=== PATIENT | male | born 1950 | race Caucasian/White ===

== ENCOUNTER 2021-09-09 11:11 | Inpatient (IN) | payer OTHER ==
[~2021-09-09] VITALS: Ht 182.9 cm; Wt 92.6 kg
[2021-09-09 11:56] LABS: BASOPHILS ABSOLUTE AUTO 0.05 K/mm3 (0.00-0.23); BASOPHILS PERCENT AUTO 1 % (0-2); EOSINOPHILS PERCENT AUTO 3 % (0-6); Hematocrit 45.8 % (37.0-53.0); Hemoglobin 15.6 g/dL (13.5-17.5); IMMATURE GRAN ABSOLUTE AUTO 0.03 K/mm3 (0.00-0.10); IMMATURE GRAN PERCENT AUTO 0 % (0-1); LYMPHOCYTES ABSOLUTE AUTO 2.15 K/mm3 (0.84-5.20); LYMPHOCYTES PERCENT AUTO 29 % (21-46); MONOCYTES ABSOLUTE AUTO 0.63 K/mm3 (0.16-1.47); MONOCYTES PERCENT AUTO 9 % (4-13); Mean Corpuscular HGB 28.6 pg (26.0-34.0); Mean Corpuscular HGB Conc 34.1 g/dL (31.5-36.5); Mean Corpuscular Volume 84 fL (80-100); Mean Platelet Volume 9.4 fL (9.1-12.4); NEUTROPHILS ABSOLUTE AUTO 4.32 K/mm3 (1.96-9.15); NEUTROPHILS PERCENT AUTO 59 % (41-73); Platelet Count 167 K/mm3 (150-400); RDW Coefficient Variation 13.2 % (11.7-14.2); RDW Standard Deviation 40.2 fL (35.1-46.3); Red Blood Cell Count 5.46 M/mm3 (4.30-5.90); White Blood Cell Count 7.38 K/mm3 (4.00-11.30)
[2021-09-09] MEDS ORDERED: SERT100 PO (12:08)
[2021-09-09] MEDS ORDERED: ATOR20 PO (12:08)
[2021-09-09] MEDS ORDERED: DOXA4 PO (12:09)
[2021-09-09] MEDS ORDERED: STIOLTO RESPIMAT4 G1 NEB (12:12)
[2021-09-09 12:13] LABS: Alanine Aminotransfer (ALT/SGP 45 U/L (12-78); Albumin, Blood 4.2 g/dL (3.4-5.0); Albumin/Globulin Ratio 1.2 (0.8-1.8); Alk Phos 91 U/L (50-136); Anion Gap 8 mmol/L (6-16); Aspartate Aminotrans (AST/SGOT 24 U/L (12-37); Bilirubin, Total 0.5 mg/dL (0.1-1.0); Blood Urea Nitrogen 21 mg/dL (8-24); Bun/Creatinine Ratio 22.3 (12.0-20.0); CO2, Blood 22 mmol/L (21-32); Calcium, Blood 8.9 mg/dL (8.5-10.1); Chloride, Blood 105 mmol/L (98-108); Creatinine, Blood 0.94 mg/dL (0.60-1.20); Globulin, Blood 3.5 g/dL (2.2-4.0); Glomerular Filtration Rate >60 (60-); Glucose, Blood 117 mg/dL (70-99); Potassium, Blood 4.2 mmol/L (3.5-5.5); Sodium, Blood 135 mmol/L (136-145); Total Protein, Blood 7.7 g/dL (6.4-8.2)
[2021-09-09] MEDS ORDERED: Ventolin5 MG/1 ML INH (12:16)
[2021-09-09 14:04] LABS: U Amphetamine Screen Not Detected; U Barbituate Screen Not Detected; U Benzodiazapine Screen Not Detected; U Buprenorphine Screen Not Detected; U Cannabinoids Screen DETECTED; U Cocaine Screen Not Detected; U Methadone Screen Not Detected; U Methamphetamine Screen Not Detected; U Opiates Screen Not Detected; U Oxycodone Screen Not Detected; U Phencyclidine Screen Not Detected; U Propoxyphene Screen Not Detected
[2021-09-09 15:12] LABS: Anti-Xa UFH, PHA Monitoring <0.10 IU/mL; International Normalized Ratio 1.02; Prothrombin Time Results 10.7 Sec (9.7-11.5)
[2021-09-09 15:51] LABS: Influenza A, PCR NEGATIVE (NEGATIVE); Influenza B, PCR NEGATIVE (NEGATIVE); Resp Syncytial Virus, PCR NEGATIVE (NEGATIVE); SARS-Cov-2 (COVID-19) PCR, MMC NEGATIVE (NEGATIVE)
--- NOTE | 2021-09-09 18:31 | NUR ---
ASSUMED CARE PT ARRIVES FROM [facility] S/P ANGIOGRAM WITH STENTING. PT ALERT AND ORIENTED. VS STABLE. O2 SATS >90% ON RA. HR NSR. PT DENIES ANY CP/PRESSURE. RIGHT RADIAL SITE WITH TR BAND IN PLACE AND 11ML OF AIR IN BAND. NO BLEEDING, BRUISING OR HEMATOMA NOTED. ARM BOARD IN PLACE AND PT EDUCATED ON RESTRICTIONS FOR RIGHT ARM. PT ORIENTED TO ROOM AND UNIT. WILL CONTINUE TO MONITOR AND REPORT TO ONCOMING RN
[2021-09-10 03:32] LABS: BASOPHILS ABSOLUTE AUTO 0.04 K/mm3 (0.00-0.23); BASOPHILS PERCENT AUTO 1 % (0-2); EOSINOPHILS PERCENT AUTO 3 % (0-6); Hematocrit 41.3 % (37.0-53.0); Hemoglobin 13.7 g/dL (13.5-17.5); IMMATURE GRAN ABSOLUTE AUTO 0.02 K/mm3 (0.00-0.10); IMMATURE GRAN PERCENT AUTO 0 % (0-1); LYMPHOCYTES ABSOLUTE AUTO 1.95 K/mm3 (0.84-5.20); LYMPHOCYTES PERCENT AUTO 25 % (21-46); MONOCYTES ABSOLUTE AUTO 0.68 K/mm3 (0.16-1.47); MONOCYTES PERCENT AUTO 9 % (4-13); Mean Corpuscular HGB 28.4 pg (26.0-34.0); Mean Corpuscular HGB Conc 33.2 g/dL (31.5-36.5); Mean Corpuscular Volume 86 fL (80-100); Mean Platelet Volume 9.6 fL (9.1-12.4); NEUTROPHILS ABSOLUTE AUTO 4.92 K/mm3 (1.96-9.15); NEUTROPHILS PERCENT AUTO 63 % (41-73); Platelet Count 147 K/mm3 (150-400); RDW Coefficient Variation 13.5 % (11.7-14.2); RDW Standard Deviation 42.2 fL (35.1-46.3); Red Blood Cell Count 4.83 M/mm3 (4.30-5.90); White Blood Cell Count 7.81 K/mm3 (4.00-11.30)
[2021-09-10 03:51] LABS: Alanine Aminotransfer (ALT/SGP 43 U/L (12-78); Albumin, Blood 3.5 g/dL (3.4-5.0); Albumin/Globulin Ratio 1.1 (0.8-1.8); Alk Phos 67 U/L (50-136); Anion Gap 5 mmol/L (6-16); Aspartate Aminotrans (AST/SGOT 74 U/L (12-37); Bilirubin, Total 0.5 mg/dL (0.1-1.0); Blood Urea Nitrogen 20 mg/dL (8-24); Bun/Creatinine Ratio 21.7 (12.0-20.0); CO2, Blood 25 mmol/L (21-32); Calcium, Blood 8.5 mg/dL (8.5-10.1); Chloride, Blood 108 mmol/L (98-108); Creatinine, Blood 0.92 mg/dL (0.60-1.20); Globulin, Blood 3.1 g/dL (2.2-4.0); Glomerular Filtration Rate >60 (60-); Glucose, Blood 113 mg/dL (70-99); Potassium, Blood 4.2 mmol/L (3.5-5.5); Sodium, Blood 138 mmol/L (136-145); Total Protein, Blood 6.6 g/dL (6.4-8.2)
--- NOTE | 2021-09-10 05:41 | NUR ---
SHIFT SUMMARY PT ALERT AND ORIENTED X4. BP STABLE. HR NSR 60'S AND 70'S. ON RA SATS OVER 94%. NS RUNNING AT 75ML/HR. PT VOIDS INDEPENDENTLY TO BATHROOM. TR BAND REMOVED BY 2300. R RADIAL SITE C/D/I. C/O 10/29 RIGHT FOREARM RADIATING PAIN. RELIEVED WITH TYLENOL. IN BED SLEEPING WITH CALL ALARM AT SIDE. WILL CONINUE TO MONITOR UNTIL REPORT GIVEN TO DAYSTERRENCEFT TAVARES
--- NOTE | 2021-09-10 16:52 | NUR ---
SHIFT SUMMARY PT ALERT AND ORIENTED. VS STABLE. O2 SATS REMAIN ABOVE 90% ON RA. HR NSR. PT DENIES ANY PAIN. PT COMPLAINS OF MILD LIGHTHEADEDNESS WHEN HE WALKS TO THE BATHROOM, BUT OTHERWISE NO COMPLAINTS. WILL CONTINUE TO MONITOR AND REPORT TO ONCOMING RN
--- NOTE | 2021-09-10 21:14 | NUR ---
Assumed care of pt at 1900. A/Ox4. Observed laying in bed with no signs of acute distress. Denies any CP/pressure or pain in general. Had a headache earlier in the night that was relieved with the PRN tylenol. Resp WNL on RA. Tele shows NSR in 80's, strong pulses t/o including R radial wrist, with no edema noted to any extremity. BP stable. R radial site C/D/I. [facility] about [facility] his new [facility] and F/U with cardiology. Patient during dayshi stated he felt lightheaded x1 when getting up. Educated patient on the need to sit on the side of the bed for a few minutes prior to getting up, and if he still feels lightheaded to call us. Patient says he hasn't had an episode of that since . Will update as changes occur.
[2021-09-11] MEDS ORDERED: CLOP75 PO (10:57)
[2021-09-11] MEDS ORDERED: ASPI81CH PO (10:57)
[2021-09-11] MEDS ORDERED: LISI5 PO (10:57)
[2021-09-11] MEDS ORDERED: METO25ER PO (10:57)
--- NOTE | 2021-09-11 12:15 | NUR ---
UPDATE DISCHARGE ORDERS PROVIDED AND INSTRUCTIONS GIVEN TO PT. PT EDUCATED ON MEDICATIONS CHANGES AND FOLLOW-UP. ALL QUESTIONS ANSWERED. PT TAKEN OUT BY RUSLAN
== END 2021-09-11 12:08 | disposition home or self-care (01) | DRG 247 ==
LOC: ER 11:11 → PCU 15:15 → MEDS 15:15 → PCU 17:53
PROVIDERS: Emergency Medicine; Nurse Practitioner Acute Care; ADMIT Internal Medicine
PROC: 027136Z Dilation of Coronary Artery, Two Arteries with Three Drug-eluting Intraluminal Devices, Percutaneous Approach (ICD-10-PCS; principal; 2021-09-09)
PROC: 4A023N7 Measurement of Cardiac Sampling and Pressure, Left Heart, Percutaneous Approach (ICD-10-PCS; 2021-09-09)
PROC: B2111ZZ Fluoroscopy of Multiple Coronary Arteries using Low Osmolar Contrast (ICD-10-PCS; 2021-09-09)
DX: I21.4 Non-ST elevation (NSTEMI) myocardial infarction (principal); Z20.822 Contact with and (suspected) exposure to COVID-19; I25.10 Atherosclerotic heart disease of native coronary artery without angina pectoris; J44.9 Chronic obstructive pulmonary disease, unspecified; E78.5 Hyperlipidemia, unspecified; F32.A Depression, unspecified; N40.0 Benign prostatic hyperplasia without lower urinary tract symptoms; Z96.653 Presence of artificial knee joint, bilateral; Z98.890 Other specified postprocedural states; Z79.899 Other long term (current) drug therapy
CPT/HCPCS: 0241U; 36415; 71045; 76937; 80053; 83690; 84484; 85025; 85347; 85520; 85610; 92928; 93005; 93010; 93306; 93458; 94640; 94760; 96374; 96375; 99152; 99153; 99285-25; A9270; C1725; C1769; C1874; C1887; C1894; C9600; J1170; J1644; J2250; J2405; J3010; J7030; J7040; J7050; Q9967

== ENCOUNTER 2021-09-22 09:51 | Observation (INO) | payer OTHER ==
[~2021-09-22] VITALS: Ht 182.9 cm; Wt 90.7 kg
[~2021-09-22 09:51] MED LIST: ASPI81CH PO; ATOR20 PO; CLOP75 PO; DOXA4 PO; LISI5 PO; METO25ER PO; SERT100 PO; STIOLTO RESPIMAT4 G1 NEB; Ventolin5 MG/1 ML INH
[2021-09-22 10:32] LABS: Anion Gap 7 mmol/L (6-16); Blood Urea Nitrogen 20 mg/dL (8-24); Bun/Creatinine Ratio 21.8 (12.0-20.0); CO2, Blood 23 mmol/L (21-32); Calcium, Blood 8.9 mg/dL (8.5-10.1); Chloride, Blood 109 mmol/L (98-108); Creatinine, Blood 0.92 mg/dL (0.60-1.20); Glomerular Filtration Rate >60 (60-); Glucose, Blood 114 mg/dL (70-99); Potassium, Blood 4.3 mmol/L (3.5-5.5); Sodium, Blood 139 mmol/L (136-145)
[2021-09-22 10:34] LABS: BASOPHILS ABSOLUTE AUTO 0.05 K/mm3 (0.00-0.23); BASOPHILS PERCENT AUTO 1 % (0-2); EOSINOPHILS ABSOLUTE AUTO 0.23 K/mm3 (0.00-0.68); EOSINOPHILS PERCENT AUTO 4 % (0-6); Hematocrit 39.4 % (37.0-53.0); Hemoglobin 13.2 g/dL (13.5-17.5); IMMATURE GRAN ABSOLUTE AUTO 0.02 K/mm3 (0.00-0.10); IMMATURE GRAN PERCENT AUTO 0 % (0-1); LYMPHOCYTES ABSOLUTE AUTO 1.91 K/mm3 (0.84-5.20); LYMPHOCYTES PERCENT AUTO 31 % (21-46); MONOCYTES ABSOLUTE AUTO 0.55 K/mm3 (0.16-1.47); MONOCYTES PERCENT AUTO 9 % (4-13); Mean Corpuscular HGB 28.5 pg (26.0-34.0); Mean Corpuscular HGB Conc 33.5 g/dL (31.5-36.5); Mean Corpuscular Volume 85 fL (80-100); Mean Platelet Volume 9.4 fL (9.1-12.4); NEUTROPHILS ABSOLUTE AUTO 3.47 K/mm3 (1.96-9.15); NEUTROPHILS PERCENT AUTO 56 % (41-73); Platelet Count 184 K/mm3 (150-400); RDW Coefficient Variation 13.2 % (11.7-14.2); RDW Standard Deviation 41.1 fL (35.1-46.3); Red Blood Cell Count 4.63 M/mm3 (4.30-5.90); White Blood Cell Count 6.23 K/mm3 (4.00-11.30)
--- NOTE | 2021-09-22 14:18 | NUR ---
1300 PATIENT WAS BROUGHT TO THE [facility] S/P CORONARY ANGIOGRAM. RIGHT RADIAL ACCESS USED BY DR. GRANT. TR BAND IN PLACE WITH 10 ML OF AIR AND WHITE BOARD. PATIENT WAS PLACE DON THE MONITOR AND CALL LIGHT IN REACH. EDWIGE IS IN A RECLINER AND NURSING STAFF AT THE BEDSIDE. PATIENT IS AAO X 3 ANS NO PAIN NOTED. VVS.
--- NOTE | 2021-09-22 14:20 | NUR ---
1420 PATIENT VVS. WILL BEGIN TAKING AIR FROM THE TR BAND PER PROTOCOL AT 1430. NO PAIN NOTED.
--- NOTE | 2021-09-22 15:14 | NUR ---
TR BAND IS FLAT, NO BLEEDING NOTED. NO HEMATOMA NOTED.
--- NOTE | 2021-09-22 15:24 | NUR ---
PATIENT UP OFF THE MONITOR. PIV REMOVED FROM THE LEFT AC. PRESSURE DRESSING APPLIED. PATIENT DRESSING SELF, ALL BELONGINGS AT THE BEDSIDE FROM THE ED. PATEINT HAS ARRANGED FOR SON TO DRIVE HIM HOME TODAY. HE WILL NOT DRIVE.
--- NOTE | 2021-09-22 16:00 | NUR ---
TR BAND REMOVED. CLOTH DOT PLACED. REVIEWED DISCHARGED INSTRUCTIONS. FOLLOW UP APPOINTMENT AND ALL QUESTIONS ANSWERED. DISCHARGED HOME WITH INSTRUCTIONS AND BELONINGS.
== END 2021-09-22 16:00 | disposition home or self-care (01) ==
LOC: ER 09:51 → ERHOLD 09:52
PROVIDERS: Emergency Medicine; ADMIT Internal Medicine
DX: R07.89 Other chest pain (principal); J44.9 Chronic obstructive pulmonary disease, unspecified; E78.5 Hyperlipidemia, unspecified; I25.10 Atherosclerotic heart disease of native coronary artery without angina pectoris; F32.A Depression, unspecified; Z95.5 Presence of coronary angioplasty implant and graft
CPT/HCPCS: 36415; 71045; 76937; 80048; 84484; 85025; 93005; 93010; 93454; 99152; 99153; A9270; C1769; C1887; C1894; J1644; J2250; J3010; J7030; J7050; Q9967

== ENCOUNTER 2022-03-15 07:00 | Day surgery (SDC) | payer OTHER ==
[~2022-03-15] VITALS: Ht 182.9 cm; Wt 88.6 kg
[~2022-03-15 07:00] MED LIST changes: +NITR.4SL SL
--- NOTE | 2022-03-15 07:46 | NUR ---
03/15/22 0746 Mary Johnson CALL LIGHT WITHIN REACH. TETRACAINE IN THE RIGHT EYE AT 0741 AND PLEDGETT AT 0742
== END 2022-03-15 09:29 | disposition home or self-care (01) ==
LOC: ORSCSDS 07:00
PROVIDERS: Ophthalmology
PROC: 08RJ3JZ Replacement of Right Lens with Synthetic Substitute, Percutaneous Approach (ICD-10-PCS; principal; 2022-03-15 08:30)
DX: H25.11 Age-related nuclear cataract, right eye (principal); J44.9 Chronic obstructive pulmonary disease, unspecified; I25.2 Old myocardial infarction; F32.A Depression, unspecified; F41.9 Anxiety disorder, unspecified; I25.10 Atherosclerotic heart disease of native coronary artery without angina pectoris; J61 Pneumoconiosis due to asbestos and other mineral fibers; Z79.82 Long term (current) use of aspirin; Z79.899 Other long term (current) drug therapy
CPT/HCPCS: J2001; J2250; J3010; J3301; J7040; V2632

== ENCOUNTER 2022-03-29 07:10 | Day surgery (SDC) | payer OTHER ==
[~2022-03-29] VITALS: Ht 182.9 cm; Wt 87.3 kg
--- NOTE | 2022-03-29 07:36 | NUR ---
03/29/22 0736 NEERU ASKEW T: 0735 P:0736 PT READY FOR OR, CALL LIGHT IN REACH
== END 2022-03-29 09:00 | disposition home or self-care (01) ==
LOC: ORSCSDS 07:10
PROVIDERS: Ophthalmology
PROC: 08RK3JZ Replacement of Left Lens with Synthetic Substitute, Percutaneous Approach (ICD-10-PCS; principal; 2022-03-29 08:30)
DX: H25.12 Age-related nuclear cataract, left eye (principal); I21.9 Acute myocardial infarction, unspecified; I25.10 Atherosclerotic heart disease of native coronary artery without angina pectoris; J61 Pneumoconiosis due to asbestos and other mineral fibers; F32.A Depression, unspecified; F41.9 Anxiety disorder, unspecified; Z79.82 Long term (current) use of aspirin; Z79.899 Other long term (current) drug therapy
CPT/HCPCS: J2001; J2250; J3010; J3301; V2632

== ENCOUNTER 2023-06-28 08:28 | Day surgery (SDC) | payer OTHER ==
[~2023-06-28] VITALS: Ht 180.3 cm; Wt 89.0 kg
[2023-06-28] VITALS (10 sets, daily range): BP systolic 121–173; BP diastolic 66–134
[~2023-06-28 08:28] MED LIST changes: +ASCO500 PO; +ATOR10 PO; +Acetaminophen650 M1 PO; +MULVITA PO; +Norco 5-325 Ta1 EACH PO; +STIOLTO RESPIMAT4 G1 INH; -STIOLTO RESPIMAT4 G1 NEB; +VITAMIN D310 MC4 PO
[2023-06-28] MEDS ORDERED: FISH OIL 1,2001 EAC7 PO (08:51)
--- NOTE | 2023-06-28 09:43 | NUR ---
PATIENT INSTRUCTED TO KEEP HIS DENTURES IN PER ANESTHESIOLOGIST.
--- NOTE | 2023-06-28 13:48 | NUR ---
PATIENT LAYING IN GURNEY WITH HOB ELEVATED APPROX 45 DEGREES. BREATING RA. DENIES PAIN AND NAUSEA. OFFERED PO FLUIDS. INCISION SITE X3 TO ABDOMEN, CLEAN AND DRY WITH NO VISIBLE DRAINAGE. SURGICAL GLUE CLOSURE INTACT X3.
--- NOTE | 2023-06-28 13:55 | NUR ---
EATING CRACKERS AND DRINKING CLEAR SODA.
--- NOTE | 2023-06-28 13:56 | NUR ---
PATIENT STATES HE HAS DECREASED SENSATION FROM CARMELO DOWN TO TOES AND IS EXPERIENCING TINGLING SENSATION. ABLE TO FEEL NURSE TOUCH HIS LEG FROM HIP TO TOES, BUT LESS SENSATION THAN NORMAL. ABLE TO MOVE TOES AND BEND KNEES.
--- NOTE | 2023-06-28 14:17 | NUR ---
NORI ARRANGED HOME WITH FRIEND, INDERJIT.
--- NOTE | 2023-06-28 14:27 | NUR ---
PATIENT CARE TURNED OVER TO RIOS PENA RN. REPORT GIVEN.
--- NOTE | 2023-06-28 14:52 | NUR ---
Patient up to Ambulate independently. Gait steady. Discharge instructions reviewed with patient. Patient verbalizes understanding. Copy given to patient to take home. Patient States Post-Procedure ride home has been arranged. Discharged via wheelchair to private car for ride home.
== END 2023-06-28 14:52 | disposition home or self-care (01) ==
LOC: ORSCMMR 08:28 → ORD 10:00 → ORSCMMR 14:52
PROVIDERS: Surgery
PROC: 8E0W4CZ Robotic Assisted Procedure of Trunk Region, Percutaneous Endoscopic Approach (ICD-10-PCS; principal; 2023-06-28 10:00)
PROC: 0YUA4JZ Supplement Bilateral Inguinal Region with Synthetic Substitute, Percutaneous Endoscopic Approach (ICD-10-PCS; principal; 2023-06-28 10:00)
DX: K40.20 Bilateral inguinal hernia, without obstruction or gangrene, not specified as recurrent (principal); D17.6 Benign lipomatous neoplasm of spermatic cord; I10 Essential (primary) hypertension; I25.10 Atherosclerotic heart disease of native coronary artery without angina pectoris; J44.9 Chronic obstructive pulmonary disease, unspecified; Z79.899 Other long term (current) drug therapy; E78.5 Hyperlipidemia, unspecified; B19.20 Unspecified viral hepatitis C without hepatic coma
CPT/HCPCS: A9270; C1781; J0690; J1100; J1170; J1885; J2405; J2704; J2795; J3010; J7120

== ENCOUNTER 2024-05-05 07:53 | Emergency (ER) | payer OTHER ==
[~2024-05-05] VITALS: Ht 182.9 cm; Wt 81.7 kg
[~2024-05-05 07:53] MED LIST changes: +FISH OIL 1,2001 EAC7 PO
[2024-05-05 08:13] LABS: Calcium, Ionized (POC) 1.12 mmol/L (1.10-1.46); Chloride (POC) 105 mmol/L (98-108); Creatinine (POC) 0.8 mg/dL (0.8-1.3); Glucose (ISTAT POC) 174 mg/dL (70-99); Hemoglobin (POC) 15.3 g/dL (13.5-17.5); Potassium (POC) 3.6 mmol/L (3.5-5.5); Sodium (POC) 140 mmol/L (135-148); Total CO2 (POC) 21 mmol/L (21-32)
[2024-05-05 08:27] LABS: BASOPHILS ABSOLUTE AUTO 0.05 K/mm3 (0.00-0.23); BASOPHILS PERCENT AUTO 1 % (0-2); EOSINOPHILS ABSOLUTE AUTO 0.22 K/mm3 (0.00-0.68); EOSINOPHILS PERCENT AUTO 4 % (0-6); Hematocrit 42.8 % (37.0-53.0); Hemoglobin 15.1 g/dL (13.5-17.5); IMMATURE GRAN ABSOLUTE AUTO 0.01 K/mm3 (0.00-0.10); IMMATURE GRAN PERCENT AUTO 0 % (0-1); LYMPHOCYTES ABSOLUTE AUTO 1.54 K/mm3 (0.84-5.20); LYMPHOCYTES PERCENT AUTO 29 % (21-46); MONOCYTES ABSOLUTE AUTO 0.36 K/mm3 (0.16-1.47); MONOCYTES PERCENT AUTO 7 % (4-13); Mean Corpuscular HGB Conc 35.3 g/dL (31.5-36.5); Mean Corpuscular Volume 85 fL (80-100); Mean Platelet Volume 9.1 fL (9.1-12.4); NEUTROPHILS ABSOLUTE AUTO 3.13 K/mm3 (1.96-9.15); NEUTROPHILS PERCENT AUTO 59 % (41-73); Platelet Count 152 K/mm3 (150-400); RDW Coefficient Variation 13.7 % (11.7-14.2); RDW Standard Deviation 42.4 fL (35.1-46.3); Red Blood Cell Count 5.03 M/mm3 (4.30-5.90); White Blood Cell Count 5.31 K/mm3 (4.00-11.30)
[2024-05-05 08:42] LABS: Ethanol (Alcohol), Blood, Med <3 mg/dL
[2024-05-05 08:46] LABS: Alanine Aminotransfer (ALT/SGP 43 U/L (12-78); Albumin, Blood 3.9 g/dL (3.4-5.0); Albumin/Globulin Ratio 1.2 (0.8-1.8); Alk Phos 98 U/L (50-136); Anion Gap 14 mmol/L (3-11); Aspartate Aminotrans (AST/SGOT 33 U/L (12-37); Bilirubin, Total 0.5 mg/dL (0.1-1.0); Blood Urea Nitrogen 10 mg/dL (8-24); Bun/Creatinine Ratio 13.1 (12.0-20.0); CO2, Blood 22 mmol/L (21-32); Calcium, Blood 8.9 mg/dL (8.5-10.1); Chloride, Blood 108 mmol/L (98-108); Creatinine, Blood 0.77 mg/dL (0.60-1.20); Globulin, Blood 3.3 g/dL (2.2-4.0); Glomerular Filtration Rate 95 (60-); Glucose, Blood 180 mg/dL (70-99); Potassium, Blood 3.6 mmol/L (3.5-5.5); Sodium, Blood 140 mmol/L (136-145); Total Protein, Blood 7.2 g/dL (6.4-8.2)
[2024-05-05] MEDS ORDERED: Ketorolac Tromethamine 15mg Vial IV ONE (09:30)
[2024-05-05 10:42] VITALS: BP 147/109
== END 2024-05-05 11:22 | disposition home or self-care (01) ==
LOC: ER 07:53
PROVIDERS: Physician Assistant
DX: R53.1 Weakness (principal); J44.9 Chronic obstructive pulmonary disease, unspecified; E78.5 Hyperlipidemia, unspecified; Z79.82 Long term (current) use of aspirin; Z79.02 Long term (current) use of antithrombotics/antiplatelets; Z79.899 Other long term (current) drug therapy
CPT/HCPCS: 70450; 80047; 80053; 80320; 85014; 85025; 93005; 93010; 96374; 99285-25; J1885

== ENCOUNTER 2025-02-25 14:14 | Emergency (ER) | payer OTHER ==
[~2025-02-25] VITALS: Ht 180.3 cm; Wt 88.5 kg
[2025-02-25] MEDS ORDERED: HYDROmorphone HCl/Pf 1MG SYR IV ONE (14:50)
[2025-02-25] MEDS ORDERED: Ketorolac Tromethamine 15mg Vial IV ONE (17:25)
[2025-02-25] MEDS ORDERED: RX Prepack 6 Tabs Oxycodone 5mg UD ONE (18:25)
[2025-02-25 18:30] VITALS: BP 152/97
[2025-02-25] MEDS ORDERED: Acetaminophen 160MG / 5ML 10.15 UDC PO ONE ×2 (18:30)
[2025-02-25] MEDS ORDERED: OXAYDO5 M1 PO (18:37)
== END 2025-02-25 19:15 | disposition home or self-care (01) ==
LOC: ER 14:14
DX: S92.342A Displaced fracture of fourth metatarsal bone, left foot, initial encounter for closed fracture (principal); S92.352A Displaced fracture of fifth metatarsal bone, left foot, initial encounter for closed fracture; S93.402A Sprain of unspecified ligament of left ankle, initial encounter; S43.402A Unspecified sprain of left shoulder joint, initial encounter; M54.2 Cervicalgia; J44.9 Chronic obstructive pulmonary disease, unspecified; E78.5 Hyperlipidemia, unspecified; Z79.2 Long term (current) use of antibiotics; Z79.82 Long term (current) use of aspirin; Z79.899 Other long term (current) drug therapy; W11.XXXA Fall on and from ladder, initial encounter
CPT/HCPCS: 70450; 72125; 73030; 73610; 73630; A9270; J1171; J1885

== ENCOUNTER 2025-05-20 06:25 | Day surgery (SDC) | payer OTHER ==
[~2025-05-20] VITALS: Ht 635 cm; Wt 80.7 kg
[~2025-05-20 06:25] MED LIST changes: +CeFAZolin Sodium 2,000 MG VIAL ONE; +OXAYDO5 M1 PO; +Tranexamic Acid 100 ML IV ONE
[2025-05-20] MEDS ORDERED: Dexamethasone Sod Phos 10 MG/ML 1ML VIAL ONE (06:57)
[2025-05-20] MEDS ORDERED: Midazolam HCl 1MG / ML 2ML Vial ONE (06:57)
[2025-05-20] MEDS ORDERED: Dexmedetomidine HCL 200 MCG / 2 ML ONE (06:58)
--- NOTE | 2025-05-20 07:21 | NUR ---
05/20/25 0721 HUMERA COLLAZO TIME OUT: 712 BLOCK START: 715 BLOCK STOP: 718 O2 SAT 98% ON 3L DURING BLOCK
[2025-05-20] MEDS ORDERED: Rocuronium Bromide 10 MG/ML 5ML Injection IV ONE (07:28)
--- NOTE | 2025-05-20 08:05 | NUR ---
05/20/25 0805 Delfina Chapman FIRST DOSE OF TXA GIVEN IN OR BY ANESTHESIA AT 0738
[2025-05-20] MEDS ORDERED: Phenylephrine HCl 100 MCG/ML-NS 10MLSYR (1MG/10ML) ONE (08:06)
[2025-05-20] MEDS ORDERED: Bupivacaine 0.5% HCl 5 MG/ML 30MLVIAL ONE (08:14)
[2025-05-20] MEDS ORDERED: FentaNYL Citrate 50 MCG/ML 2 ML Injection ONE (08:39)
[2025-05-20] MEDS ORDERED: Ondansetron HCl 2 MG / ML 2ML Vial ONE ×2 (08:50→10:56)
[2025-05-20] MEDS ORDERED: Sugammadex Sodium 200 MG/2ML SDV (100 MG/ML) ONE (08:51)
--- NOTE | 2025-05-20 09:38 | NUR ---
05/20/25 0938 Elza Hunt TRIAL DOWN TO 3LPM VIA NC STARTING. PT BEGINNING TO STIR. HE ENDORSES MILD PAIN AT THIS TIME. DENIES DIZZINESS/NAUSEA.
--- NOTE | 2025-05-20 09:55 | NUR ---
05/20/25 0955 Elza Hunt XR COMPLETED. SPO2 97% ON 3LPM. VSS. PT DENIES PAIN/NAUSEA/DIZZINESS.
[2025-05-20] MEDS ORDERED: Tranexamic Acid 100 ML IV ONE (10:13)
[2025-05-20 11:06] VITALS: BP 128/66
== END 2025-05-20 11:28 | disposition home or self-care (01) ==
LOC: ORSCSDS 06:25
PROVIDERS: Orthopaedic Surgery
PROC: 0RRK00Z Replacement of Left Shoulder Joint with Reverse Ball and Socket Synthetic Substitute, Open Approach (ICD-10-PCS; principal; 2025-05-20 07:30)
DX: M19.012 Primary osteoarthritis, left shoulder (principal); I10 Essential (primary) hypertension; I25.10 Atherosclerotic heart disease of native coronary artery without angina pectoris; B19.20 Unspecified viral hepatitis C without hepatic coma; Z79.02 Long term (current) use of antithrombotics/antiplatelets; Z79.82 Long term (current) use of aspirin; Z79.899 Other long term (current) drug therapy; E78.5 Hyperlipidemia, unspecified; I25.2 Old myocardial infarction; J44.9 Chronic obstructive pulmonary disease, unspecified; N40.0 Benign prostatic hyperplasia without lower urinary tract symptoms; Z87.891 Personal history of nicotine dependence; Z96.611 Presence of right artificial shoulder joint; Z96.653 Presence of artificial knee joint, bilateral
CPT/HCPCS: 73030; A9270; C1713; C1776; J0690; J1100; J2250; J2371; J2405; J2704; J3010; J7120

== ENCOUNTER 2025-05-26 09:24 | Inpatient (IN) | payer OTHER ==
[2025-05-26] VITALS (7 sets, daily range): BP systolic 122–165; BP diastolic 64–73
[~2025-05-26] VITALS: Ht 182.9 cm; Wt 84.0 kg
[~2025-05-26 09:24] MED LIST changes: +ALBU90OI INH; -ASPI81CH PO; +Aspir 8181 MG PO; -CeFAZolin Sodium 2,000 MG VIAL ONE; -Tranexamic Acid 100 ML IV ONE; -Ventolin5 MG/1 ML INH
[2025-05-26] MEDS ORDERED: Ondansetron HCl 2 MG / ML 2ML Vial IV ONE (09:40)
[2025-05-26] MEDS ORDERED: Morphine Sulfate 4 MG/1 ML Injection IV ONE (10:00)
[2025-05-26 10:42] LABS: BASOPHILS ABSOLUTE AUTO 0.01 K/mm3 (0.00-0.23); BASOPHILS PERCENT AUTO 0 % (0-2); EOSINOPHILS ABSOLUTE AUTO 0.01 K/mm3 (0.00-0.68); EOSINOPHILS PERCENT AUTO 0 % (0-6); IMMATURE GRAN ABSOLUTE AUTO 0.06 K/mm3 (0.00-0.10); IMMATURE GRAN PERCENT AUTO 1 % (0-1); LYMPHOCYTES ABSOLUTE AUTO 1.27 K/mm3 (0.84-5.20); LYMPHOCYTES PERCENT AUTO 11 % (21-46); MONOCYTES ABSOLUTE AUTO 0.80 K/mm3 (0.16-1.47); MONOCYTES PERCENT AUTO 7 % (4-13); Mean Corpuscular HGB Conc 28.7 g/dL (31.5-36.5); Mean Corpuscular Volume 96 fL (80-100); NEUTROPHILS ABSOLUTE AUTO 9.39 K/mm3 (1.96-9.15); NEUTROPHILS PERCENT AUTO 81 % (41-73); NRBC ABSOLUTE 0.02 K/mm3 (0.00-0.02); NRBC Auto 0.2 /100 WBC (0.0-0.2); Platelet Count 298 K/mm3 (150-400); RDW Coefficient Variation 16.6 % (11.7-14.2); RDW Standard Deviation 56.3 fL (35.1-46.3)
[2025-05-26 10:47] LABS: Hemoglobin 4.7 g/dL (13.5-17.5)
[2025-05-26 10:57] LABS: Hematocrit 16.4 % (37.0-53.0)
[2025-05-26 11:12] LABS: Alanine Aminotransfer (ALT/SGP 36.0 U/L (12-78); Albumin, Blood 2.7 g/dL (3.4-5.0); Albumin/Globulin Ratio 0.9 (0.8-1.8); Anion Gap 9.0 mmol/L (3-11); Aspartate Aminotrans (AST/SGOT 22.0 U/L (12-37); Bilirubin, Total 0.5 mg/dL (0.1-1.0); Blood Urea Nitrogen 27.0 mg/dL (8-24); CO2, Blood 24.0 mmol/L (21-32); Calcium, Blood 8.2 mg/dL (8.5-10.1); Chloride, Blood 107.0 mmol/L (98-108); Creatinine, Blood 0.7 mg/dL (0.60-1.20); Ferritin, Serum 233.0 ng/mL (26-388); Globulin, Blood 3.0 g/dL (2.2-4.0); Glucose, Blood 173.0 mg/dL (70-99); Potassium, Blood 4.0 mmol/L (3.5-5.5); Sodium, Blood 136.0 mmol/L (136-145); Total Iron Binding Capacity 269.0 ug/dL (250-450); Total Protein, Blood 5.7 g/dL (6.4-8.2)
[2025-05-26] MEDS ORDERED: FLU VACC TS2025(65UP)/MF59C/PF 45 MCG/0.5 ML SYRINGE IM SCH (12:40)
[2025-05-26 12:50] LABS: IMMATURE RETIC FRACTION 41.8 % (2.3-16.0); RETIC HGB EQUIVALENT 22.5 pg (28.20-36.60); RETICULOCYTE COUNT PERCENT 13.11 % (0.50-2.50)
[2025-05-26] MEDS ORDERED: NS 1,000 ML IV SCH (13:00)
[2025-05-26] MEDS ORDERED: NS 500 ML IV SCH (13:35)
[2025-05-26] MEDS ORDERED: ASMANEX220 M14 INH (13:40)
[2025-05-26] MEDS ORDERED: ATOR80 PO (13:41)
[2025-05-26] MEDS ORDERED: DULO60 PO (13:41)
[2025-05-26] MEDS ORDERED: Ondansetron 4 MG SoluTab MM PRN (14:45)
[2025-05-26] MEDS ORDERED: Albuterol HFA200 ACT/6.7 GM INH INH PRN (15:30)
[2025-05-26] MEDS ORDERED: Mometasone Furoate Inhaler 220 mcg 14 ACT INH SCH (15:30)
[2025-05-26] MEDS ORDERED: Ipratropium/Albuterol SulF 2.5-0.5MG/3 ML Amp INH SCH (15:30)
--- NOTE | 2025-05-26 15:36 | NUR ---
PT ADMITTED TO ROOM 359 AT 1414 WITH FIRST UNIT OF PRBS'S INFUSING IN LH#20, STARTED AT 1305. PT SLID FROM GOURNEY TO BED SLIDE TX. PT BECOMDS DYSPNIC WHEN HOB ELEVATED, KEEPING PT LAYING FLAT WITH LEGS UP. VSS. ORIENTED TO ROOM SET UP AND CALL LIGHT. KNOWS LIMITS, ABLE TO MAKE NEEDS KNOWN.
--- NOTE | 2025-05-26 15:53 | NUR ---
1445- PT TRANSFERRED FROM ICU 12 TO ROOM 358 VIA GOURNEY TO BED TRANSFER. ORIENTED TO ROOM SET UP AND CALL LIGHT. SEEMS TO KNOW HIS LIMITS. TOLERATING CLEARS AND A MILK SHAKE. VERBAL PLASANT AND COOPERATIVE
[2025-05-26] MEDS ORDERED: CefTRIAXone Sodium 1,000 MG in NS 100 ML IV SCH (16:00)
[2025-05-26] MEDS ORDERED: OXYC5 PO (16:51)
--- NOTE | 2025-05-26 18:44 | NUR ---
SUMMARY- PT A/O X4- CAME IN WITH DIZZINESS AND WEAKNESS, VERY LOW H/H. PT COMPLETING 2ND UNIT OF PRBC'S. VSS, FEBRILE BREIFLY, MEDICATED WITH TYLENOL BETWEEN UNITS. OXY 5MG FOR L SHOULDER PAIN. TOLERATED BITES OF GEN DINNER. WILL RECHECH HH ONE HOUR AFTER 2ND UNIT TRANS. PT ON ROOM AIR, USES O2 AT NIGHT. TELE SR 84. WILL REPORT TO NOC RN
[2025-05-26] MEDS ORDERED: Sod Ferric Gluc Complx/Sucrose 125 MG in NS 100 ML IV SCH (19:00)
[2025-05-26 20:42] LABS: Hematocrit 20.5 % (37.0-53.0); Hemoglobin 6.2 g/dL (13.5-17.5)
[2025-05-26 22:24] LABS: Source, Urine Clean Catch
[2025-05-26] MEDS ORDERED: CefTRIAXone Sodium 2,000 MG in NS 100 ML IV SCH (23:11)
[2025-05-26 23:13] LABS: Bilirubin, Urine Neg (Neg); Glucose Qualitative, Urine Neg (Neg); Ketones, Urine Neg (Neg); Leukocyte Esterase, Urine Neg (Neg); Protein, Urine 1+ (Neg); Specific Gravity, Urine 1.015 (1.003-1.022); Urobilinogen, Urine NORM (Normal)
[2025-05-26 23:35] LABS: Color, Urine Yellow (P-Yellow)
[2025-05-26 23:37] LABS: Red Blood Cells, Urine 0-2 /hpf (0-2); White Blood Cells, Urine 0-2 /hpf (0-5)
[2025-05-27] VITALS (9 sets, daily range): BP systolic 116–141; BP diastolic 60–72
[2025-05-27] MEDS ORDERED: NS 250 ML IV PRN (00:30)
--- NOTE | 2025-05-27 05:14 | NUR ---
PT RECEIVED 3 TOTAL UNITS OF PRBC'S SINCE 05/26 HGB IMPROVING. PT COMPLAINS OF PAIN R/T L SHOULDER SURGERY. C/O DIZZINESS WHEN HEAD OF BED IS RAISED. BRUISING LOCATED AROUND L SHOULDER/ARMPIT/BACK. PLACED ON O2 WHILE SLEEPING PT STATES HE DOES THIS AT HOME. O2 SAT HIGH 90'S ON RA WHILE AWAKE. URINALYSIS COLLECTED AND PENDING.
[2025-05-27 05:51] LABS: BASOPHILS ABSOLUTE AUTO 0.05 K/mm3 (0.00-0.23); BASOPHILS PERCENT AUTO 1 % (0-2); EOSINOPHILS ABSOLUTE AUTO 0.23 K/mm3 (0.00-0.68); EOSINOPHILS PERCENT AUTO 3 % (0-6); Hematocrit 22.6 % (37.0-53.0); Hemoglobin 7.2 g/dL (13.5-17.5); IMMATURE GRAN ABSOLUTE AUTO 0.10 K/mm3 (0.00-0.10); IMMATURE GRAN PERCENT AUTO 1 % (0-1); LYMPHOCYTES ABSOLUTE AUTO 1.53 K/mm3 (0.84-5.20); LYMPHOCYTES PERCENT AUTO 22 % (21-46); MONOCYTES ABSOLUTE AUTO 0.59 K/mm3 (0.16-1.47); MONOCYTES PERCENT AUTO 8 % (4-13); Mean Corpuscular HGB Conc 31.9 g/dL (31.5-36.5); NEUTROPHILS ABSOLUTE AUTO 4.49 K/mm3 (1.96-9.15); NEUTROPHILS PERCENT AUTO 64 % (41-73); NRBC ABSOLUTE 0.02 K/mm3 (0.00-0.02); NRBC Auto 0.3 /100 WBC (0.0-0.2); Platelet Count 188 K/mm3 (150-400); RDW Coefficient Variation 16.6 % (11.7-14.2); RDW Standard Deviation 52.8 fL (35.1-46.3)
[2025-05-27 05:52] LABS: Mean Corpuscular Volume 91 fL (80-100)
[2025-05-27 06:55] LABS: Alanine Aminotransfer (ALT/SGP 34.0 U/L (12-78); Albumin, Blood 2.5 g/dL (3.4-5.0); Albumin/Globulin Ratio 1.0 (0.8-1.8); Anion Gap 10.0 mmol/L (3-11); Aspartate Aminotrans (AST/SGOT 26.0 U/L (12-37); Bilirubin, Total 0.5 mg/dL (0.1-1.0); Blood Urea Nitrogen 16.0 mg/dL (8-24); CO2, Blood 22.0 mmol/L (21-32); Calcium, Blood 7.6 mg/dL (8.5-10.1); Chloride, Blood 111.0 mmol/L (98-108); Creatinine, Blood 0.82 mg/dL (0.60-1.20); Globulin, Blood 2.6 g/dL (2.2-4.0); Glucose, Blood 128.0 mg/dL (70-99); Potassium, Blood 3.4 mmol/L (3.5-5.5); Sodium, Blood 140.0 mmol/L (136-145); Total Protein, Blood 5.1 g/dL (6.4-8.2)
[2025-05-27] MEDS ORDERED: Multivitamins 1 Tab PO SCH (09:00)
[2025-05-27] MEDS ORDERED: DULoxetine HCL 60 MG Capsule DR PO SCH (09:00)
[2025-05-27 13:22] LABS: Hematocrit 24.3 % (37.0-53.0); Hemoglobin 7.4 g/dL (13.5-17.5)
[2025-05-27 17:05] LABS: Influenza A, PCR NEGATIVE (NEGATIVE); Influenza B, PCR NEGATIVE (NEGATIVE); Resp Syncytial Virus, PCR NEGATIVE (NEGATIVE); SARS-Cov-2 (COVID-19) PCR, MMC NEGATIVE (NEGATIVE)
--- NOTE | 2025-05-27 18:44 | NUR ---
SHIFT SUMMARY PT IS A/OX4. BEDREST AT THIS TIME R/T L ANKLE FRACTURE AND RECENT L SHOULDER REPLACEMENT. NO ACUTE CHANGES THROUGHOUT THIS SHIFT. ON RA WHILE AWAKE, USING 2L NC AT NIGHT. PT REPORTS THIS IS AT BASELINE. CHEST US COMPLETED THIS MORNING REGARDING LEFT CHEST BRUISING.
[2025-05-27 21:06] LABS: Hematocrit 23.1 % (37.0-53.0); Hemoglobin 7.2 g/dL (13.5-17.5)
[2025-05-28] MEDS ORDERED: Vancomycin (Pharmacy Consult) IV SCH (00:05)
[2025-05-28 04:23] VITALS: BP 139/77
[2025-05-28 04:40] LABS: BASOPHILS ABSOLUTE AUTO 0.05 K/mm3 (0.00-0.23); BASOPHILS PERCENT AUTO 1 % (0-2); EOSINOPHILS ABSOLUTE AUTO 0.36 K/mm3 (0.00-0.68); EOSINOPHILS PERCENT AUTO 5 % (0-6); Hematocrit 23.1 % (37.0-53.0); Hemoglobin 7.2 g/dL (13.5-17.5); IMMATURE GRAN ABSOLUTE AUTO 0.06 K/mm3 (0.00-0.10); IMMATURE GRAN PERCENT AUTO 1 % (0-1); LYMPHOCYTES ABSOLUTE AUTO 1.02 K/mm3 (0.84-5.20); LYMPHOCYTES PERCENT AUTO 15 % (21-46); MONOCYTES ABSOLUTE AUTO 0.50 K/mm3 (0.16-1.47); MONOCYTES PERCENT AUTO 8 % (4-13); Mean Corpuscular HGB Conc 31.2 g/dL (31.5-36.5); Mean Corpuscular Volume 94 fL (80-100); NEUTROPHILS ABSOLUTE AUTO 4.72 K/mm3 (1.96-9.15); NEUTROPHILS PERCENT AUTO 70 % (41-73); NRBC ABSOLUTE 0.00 K/mm3 (0.00-0.02); NRBC Auto 0.0 /100 WBC (0.0-0.2); Platelet Count 198 K/mm3 (150-400); RDW Coefficient Variation 16.8 % (11.7-14.2); RDW Standard Deviation 53.4 fL (35.1-46.3)
--- NOTE | 2025-05-28 04:55 | NUR ---
PT BLOOD CULTURES RETURN + FOR G+ CLUSTERED COCCI RELAYED RESULTS TO PROVIDER, PHARMACY ORDERED/DOSING VANC. PT STILL WITH C/O SHOULDER PAIN THOUGH LESS FREQUENT THAN PREVIOUS NIGHT. PT WAS CONCERNED FOR LACK OF SLEEP FROM PREVIOUS NIGHTS IN HOSPITAL, WAS GIVEN OPPORTUNITY FOR MAXIMUM REST, PT STATES HE SLEPT MUCH BETTER THIS EVENING.
[2025-05-28 05:18] LABS: Anion Gap 10.0 mmol/L (3-11); Blood Urea Nitrogen 10.0 mg/dL (8-24); CO2, Blood 23.0 mmol/L (21-32); Calcium, Blood 8.3 mg/dL (8.5-10.1); Chloride, Blood 109.0 mmol/L (98-108); Creatinine, Blood 0.73 mg/dL (0.60-1.20); Glucose, Blood 137.0 mg/dL (70-99); Potassium, Blood 3.6 mmol/L (3.5-5.5); Sodium, Blood 138.0 mmol/L (136-145)
[2025-05-28] MEDS ORDERED: Ipratropium/Albuterol SulF 2.5-0.5MG/3 ML Amp INH SCH (07:00)
[2025-05-28 07:32] VITALS: BP 144/73
[2025-05-28 16:37] VITALS: BP 138/77
--- NOTE | 2025-05-28 18:29 | NUR ---
SHIFT SUMMARY PT IS A/OX4. 1 PERSON ASSIST WITH CANE TO CHAIR WITH SLING AND BOOT. NO ACUTE CHANGES THROUGHOUT THIS SHIFT. MEDICATED FOR L SHOULDER AND NECK PAIN WITH OXYCODONE PER MAR. ON RA DURING THE DAY, SATS >92%, PT REPORTS USING 2L AT NIGHT. PT IS PLEASANT AND COOPERATIVE WITH CARE AND CALLS APPROPRIATELY USING THE CALL LIGHT.
[2025-05-28 19:36] VITALS: BP 149/77
[2025-05-29 03:47] VITALS: BP 151/80
--- NOTE | 2025-05-29 06:26 | NUR ---
NOC SHIFT SUMMARY PT C/O X2 THAT WAS MEDICATED PER EMAR. IV ABX INFUSED PER ORDER. NO ACUTE CHANGES THIS SHIFT. CALL LIGHT WITHIN REACH AND PT ABLE TO MAKE NEEDS KNOWN.
[2025-05-29 07:12] VITALS: BP 151/89
[2025-05-29 13:20] LABS: Vancomycin, Trough 12.4 ug/mL (5.0-10.0)
--- NOTE | 2025-05-29 14:34 | NUR ---
DISCHARGE SUMMARY: PIV DC'D. PATIENT DISCHARGE HOME. DISCHARGE INSTRUCTIONS PACKET GIVEN TO PATIENT. PATIENT EDUCATED ON ADMITTING DX'S OF ANEMIA, S/S, TX AND TO F/U c PCP. PATIENT VERBALIZED UNDERSTANDING c NO FURTHER QUESTIONS. ALL PERSONAL BELONGINGS WERE SENT c PATIENT. PATIENT LEFT THE ROOM AT 1431, TRANSPORTED VIA WC BY VIOLETA NARAYANAN TO PATIENT ENTRANCE WERE HIS RIDE AWAITING FOR HIM.
== END 2025-05-29 14:31 | disposition home or self-care (01) | DRG 812 ==
LOC: ER 09:24 → MEDS 09:25 → ERHOLD 09:25 → MEDS 13:01 → ENPENDDIS 05-29 12:30 → MEDS 05-29 14:31
PROVIDERS: Emergency Medicine; Student in an Organized Health Care Education/Training Program; ADMIT Student in an Organized Health Care Education/Training Program
PROC: 30233N1 Transfusion of Nonautologous Red Blood Cells into Peripheral Vein, Percutaneous Approach (ICD-10-PCS; principal; 2025-05-26)
PROC: 3E03329 Introduction of Other Anti-infective into Peripheral Vein, Percutaneous Approach (ICD-10-PCS; 2025-05-26)
DX: D50.9 Iron deficiency anemia, unspecified (principal); E87.21 Acute metabolic acidosis; R65.10 Systemic inflammatory response syndrome (SIRS) of non-infectious origin without acute organ dysfunction; E44.0 Moderate protein-calorie malnutrition; I25.10 Atherosclerotic heart disease of native coronary artery without angina pectoris; E87.6 Hypokalemia; M13.812 Other specified arthritis, left shoulder; J44.9 Chronic obstructive pulmonary disease, unspecified; E78.5 Hyperlipidemia, unspecified; N40.0 Benign prostatic hyperplasia without lower urinary tract symptoms; F32.A Depression, unspecified; E86.0 Dehydration; Z87.891 Personal history of nicotine dependence; Z68.24 Body mass index [BMI] 24.0-24.9, adult; Z79.899 Other long term (current) drug therapy; Z79.02 Long term (current) use of antithrombotics/antiplatelets; Z79.82 Long term (current) use of aspirin; Z96.653 Presence of artificial knee joint, bilateral; Z95.5 Presence of coronary angioplasty implant and graft; Z98.890 Other specified postprocedural states; Z88.8 Allergy status to other drugs, medicaments and biological substances
CPT/HCPCS: 36415; 36430; 71045; 73030; 74177; 76604; 80048; 80053; 80202; 81001; 82272; 82330; 82607; 82728; 82746; 83540; 83550; 83605; 83615; 84484; 85014; 85018; 85025; 85045; 86850; 86900; 86901; 86923; 87040; 87077; 87637; 93005; 93010; 94640; 94664; 94760; 94762; 96361; 96365; 96366; 96367; 96374; 96375; 97110; 97161; 97165; 97535; 99285-25; A9270; G0378; J0612; J0696; J2270; J2405; J2916; J3373; J7030; J7040; J7050; J7120; P9016; Q9967

== ENCOUNTER 2025-06-19 12:19 | Inpatient (IN) | payer OTHER ==
[~2025-06-19] VITALS: Ht 182.9 cm; Wt 83.0 kg
[~2025-06-19 12:19] MED LIST changes: +ASMANEX220 M14 INH; +ATOR80 PO; +DULO60 PO; +OXYC5 PO
[2025-06-19] MEDS ORDERED: HYDROmorphone HCl/Pf 1MG SYR IV ONE (12:45)
[2025-06-19] MEDS ORDERED: Ondansetron HCl 2 MG / ML 2ML Vial IV ONE (12:45)
[2025-06-19] MEDS ORDERED: NS 1,000 ML IV SCH (12:45)
[2025-06-19] MEDS ORDERED: Pantoprazole Sodium 40 MG Injection IV ONE (12:45)
[2025-06-19 12:46] LABS: BASOPHILS ABSOLUTE AUTO 0.03 K/mm3 (0.00-0.23); BASOPHILS PERCENT AUTO 0 % (0-2); EOSINOPHILS ABSOLUTE AUTO 0.11 K/mm3 (0.00-0.68); EOSINOPHILS PERCENT AUTO 1 % (0-6); Hematocrit 18.7 % (37.0-53.0); IMMATURE GRAN ABSOLUTE AUTO 0.04 K/mm3 (0.00-0.10); IMMATURE GRAN PERCENT AUTO 1 % (0-1); LYMPHOCYTES ABSOLUTE AUTO 1.73 K/mm3 (0.84-5.20); LYMPHOCYTES PERCENT AUTO 20 % (21-46); MONOCYTES ABSOLUTE AUTO 0.77 K/mm3 (0.16-1.47); MONOCYTES PERCENT AUTO 9 % (4-13); Mean Corpuscular HGB Conc 28.9 g/dL (31.5-36.5); Mean Corpuscular Volume 95 fL (80-100); NEUTROPHILS ABSOLUTE AUTO 5.97 K/mm3 (1.96-9.15); NEUTROPHILS PERCENT AUTO 69 % (41-73); NRBC ABSOLUTE 0.00 K/mm3 (0.00-0.02); NRBC Auto 0.0 /100 WBC (0.0-0.2); Platelet Count 260 K/mm3 (150-400); RDW Coefficient Variation 15.5 % (11.7-14.2); RDW Standard Deviation 53.1 fL (35.1-46.3)
[2025-06-19 12:48] LABS: Hemoglobin 5.4 g/dL (13.5-17.5)
[2025-06-19 13:13] LABS: Prothrombin Time Results 11.1 Sec (9.7-11.5)
[2025-06-19 13:34] LABS: Alanine Aminotransfer (ALT/SGP 28.0 U/L (12-78); Albumin, Blood 3.4 g/dL (3.4-5.0); Albumin/Globulin Ratio 1.1 (0.8-1.8); Anion Gap 12.0 mmol/L (3-11); Aspartate Aminotrans (AST/SGOT 22.0 U/L (12-37); Bilirubin, Total 0.3 mg/dL (0.1-1.0); Blood Urea Nitrogen 19.0 mg/dL (8-24); CO2, Blood 21.0 mmol/L (21-32); Calcium, Blood 8.6 mg/dL (8.5-10.1); Chloride, Blood 110.0 mmol/L (98-108); Creatinine, Blood 0.66 mg/dL (0.60-1.20); Globulin, Blood 3.0 g/dL (2.2-4.0); Glucose, Blood 170.0 mg/dL (70-99); Potassium, Blood 3.8 mmol/L (3.5-5.5); Sodium, Blood 139.0 mmol/L (136-145); Total Protein, Blood 6.4 g/dL (6.4-8.2)
[2025-06-19] MEDS ORDERED: CefTRIAXone Sodium 1,000 MG in NS 100 ML IV ONE (13:40)
[2025-06-19] MEDS ORDERED: HYDROcodone 5-APAP 325 TAB PO PRN (13:40)
[2025-06-19] MEDS ORDERED: FLU VACC TS2025(65UP)/MF59C/PF 45 MCG/0.5 ML SYRINGE IM SCH (13:50)
[2025-06-19 14:10] LABS: Influenza A, PCR NEGATIVE (NEGATIVE); Influenza B, PCR NEGATIVE (NEGATIVE); Resp Syncytial Virus, PCR NEGATIVE (NEGATIVE); SARS-Cov-2 (COVID-19) PCR, MMC NEGATIVE (NEGATIVE)
[2025-06-19 16:13] VITALS: BP 158/71
[2025-06-19] MEDS ORDERED: Pantoprazole Sodium 40 MG Injection IV SCH (16:30)
[2025-06-19] MEDS ORDERED: NS 500 ML IV SCH (16:55)
[2025-06-19 17:28] VITALS: BP 133/67
[2025-06-19 17:58] VITALS: BP 135/68
[2025-06-19 18:39] LABS: Source, Urine Clean Catch
[2025-06-19 18:42] LABS: Bilirubin, Urine Neg (Neg); Color, Urine Yellow (P-Yellow); Glucose Qualitative, Urine Neg (Neg); Ketones, Urine Neg (Neg); Leukocyte Esterase, Urine Neg (Neg); Protein, Urine 1+ (Neg); Specific Gravity, Urine 1.010 (1.003-1.022); Urobilinogen, Urine NORM (Normal)
--- NOTE | 2025-06-19 18:42 | NUR ---
SHIFT SUMMARY PATIENT TRANSFERRED TO [facility] FLOOR AT 1605. PATIENT ORIENTED TO ROOM. PATIENT ALERT ORIENTED X4, MAKE NEEDS KNOWN. PLEASANT AND COOPERATIVE DURING CARE. PATIENT SBA D/T WEAKNESS AND PAIN ON L SHOULDER REPLACEMENT 4 WEEKS AGO. INFUSING BLOOD AT THE MOMENT AT 125 ML/HR. LAB NOTIFIED THIS RN ABOUT CRITICAL LAB LACTIC AT 3.3 DR. SMITH AWARE, NO NEW ORDER. COMPLAIN OF PAIN MEDICATED PER EMAR. SELF-REPOSITION. BED LOCKED AND IN LOWEST POSITION. CALL LIGHT WITHIN REACH. PATIENT STATED TWO BONE FRACTURE ON TOP OF LEFT FOOT.
[2025-06-19 19:19] VITALS: BP 141/66
[2025-06-19 20:30] VITALS: BP 135/69
[2025-06-19 21:21] LABS: Hematocrit 21.0 % (37.0-53.0); Hemoglobin 6.5 g/dL (13.5-17.5)
[2025-06-19 22:49] VITALS: BP 113/66
[2025-06-20] VITALS (13 sets, daily range): BP systolic 122–172; BP diastolic 60–92
--- NOTE | 2025-06-20 03:42 | NUR ---
SHIFT SUMMARY: PT IS AOX4. AFEBRILE, VSS. PT HAS RECIEVED 4 UNITS TOTAL OF PRBCs. LAST HGB 6.5, NEW H&H ORDERED. CARDIAC TELEMETRY, NSR 80s. PT HAS BEEN NPO EXCEPT WATER SINCE 2300, AND WILL BE NPO AT 0600 PER ORDERS. PT DENIES CP, OR FLANK PAIN. PT HAS BEEN RECIEVING PAIN MANAGEMENT FOR L SHOULDER PER eMAR. CALL LIGHT IS WITHIN REACH. BED IS LOW AND LOCKED.
[2025-06-20 04:42] LABS: Hematocrit 26.0 % (37.0-53.0); Hemoglobin 8.5 g/dL (13.5-17.5)
[2025-06-20 05:14] LABS: Anion Gap 8.0 mmol/L (3-11); Blood Urea Nitrogen 13.0 mg/dL (8-24); CO2, Blood 23.0 mmol/L (21-32); Calcium, Blood 8.2 mg/dL (8.5-10.1); Chloride, Blood 112.0 mmol/L (98-108); Creatinine, Blood 0.7 mg/dL (0.60-1.20); Glucose, Blood 119.0 mg/dL (70-99); Potassium, Blood 3.8 mmol/L (3.5-5.5); Sodium, Blood 139.0 mmol/L (136-145)
[2025-06-20] MEDS ORDERED: Aspir 8181 MG PO (13:39)
[2025-06-20] MEDS ORDERED: Mometasone Furoate Inhaler 220 mcg 14 ACT INH SCH (14:10)
[2025-06-20] MEDS ORDERED: Albuterol HFA200 ACT/6.7 GM INH INH PRN (14:10)
[2025-06-20] MEDS ORDERED: Ipratropium/Albuterol SulF 2.5-0.5MG/3 ML Amp INH SCH (14:15)
[2025-06-20 14:53] LABS: Hematocrit 25.9 % (37.0-53.0); Hemoglobin 8.5 g/dL (13.5-17.5)
--- NOTE | 2025-06-20 18:35 | NUR ---
PT A/OX4. PLEASANT AND COOPERATIVE WITH CARE. PAIN HAS BEEN TREATED PER EMAR. HE HAS BEEN SR ON TELE. PT LEFT FOR EGD AT APPROX 1814.
--- NOTE | 2025-06-20 18:44 | NUR ---
06/20/[address] SEE ANESTHESIA RECORDS.
[2025-06-21] MEDS ORDERED: FentaNYL Citrate 50 MCG/ML 2 ML Injection IV PRN (01:50)
[2025-06-21] MEDS ORDERED: Ondansetron HCl 2 MG / ML 2ML Vial IV PRN (01:50)
--- NOTE | 2025-06-21 02:50 | NUR ---
HOSPITALIST CALLED PATIENT WOKE UP AT APPROXIMATELY 0130, GOT DIZZY AND STARTED VOMITING. PATIENT HAD REQUESTED PAIN MEDICATION BEFORE THIS EPISODE ALTHOUGH HAD TO WAIT 30 MINTUES BEFORE IT WOULD BECOME AVAILABLE. PATIENT WAS COMPLAINING OF L SHOULDER PAIN 03/31. HOSPITALIST GAVE ORDERS FOR IV ZOFRAN 4MG AND FENTANYL 25-50 MCG.
--- NOTE | 2025-06-21 05:24 | NUR ---
SHIFT SUMMARY PATIENT ADMITTED WITH A GI BLEED. PATIENT ALERT AND ORIENTED X4. PATIENT RETURNED TO THE FLOOR AT 1905 FROM DAY SURGERY FOR AN UPPER ENDOSCOPY. VITALS STABLE. PATIENT HAD EMESIS AT APPROXIMATELY 0130 HOURS, HOSPITALIST WAS CALLED FOR IV ZOFRAN, PATIENT MEDICATED PER EMAR FOR NAUSEA AND PAIN. PATIENT RESTING AT THIS TIME. BED RAILS UP X2. BED IN LOWEST POSITION FOR SAFETY. CALL LIGHT WITHIN REACH.
[2025-06-21 06:01] VITALS: BP 146/84
[2025-06-21 06:11] LABS: BASOPHILS ABSOLUTE AUTO 0.04 K/mm3 (0.00-0.23); BASOPHILS PERCENT AUTO 1 % (0-2); EOSINOPHILS ABSOLUTE AUTO 0.09 K/mm3 (0.00-0.68); EOSINOPHILS PERCENT AUTO 2 % (0-6); Hematocrit 27.0 % (37.0-53.0); Hemoglobin 8.8 g/dL (13.5-17.5); IMMATURE GRAN ABSOLUTE AUTO 0.01 K/mm3 (0.00-0.10); IMMATURE GRAN PERCENT AUTO 0 % (0-1); LYMPHOCYTES ABSOLUTE AUTO 1.01 K/mm3 (0.84-5.20); LYMPHOCYTES PERCENT AUTO 19 % (21-46); MONOCYTES ABSOLUTE AUTO 0.36 K/mm3 (0.16-1.47); MONOCYTES PERCENT AUTO 7 % (4-13); Mean Corpuscular HGB Conc 32.6 g/dL (31.5-36.5); NEUTROPHILS ABSOLUTE AUTO 3.71 K/mm3 (1.96-9.15); NEUTROPHILS PERCENT AUTO 71 % (41-73); NRBC ABSOLUTE 0.00 K/mm3 (0.00-0.02); NRBC Auto 0.0 /100 WBC (0.0-0.2); Platelet Count 215 K/mm3 (150-400); RDW Coefficient Variation 14.5 % (11.7-14.2); RDW Standard Deviation 46.8 fL (35.1-46.3)
[2025-06-21 06:16] LABS: Mean Corpuscular Volume 89 fL (80-100)
[2025-06-21 06:59] LABS: Anion Gap 11.0 mmol/L (3-11); Blood Urea Nitrogen 9.0 mg/dL (8-24); CO2, Blood 23.0 mmol/L (21-32); Calcium, Blood 8.5 mg/dL (8.5-10.1); Chloride, Blood 109.0 mmol/L (98-108); Creatinine, Blood 0.68 mg/dL (0.60-1.20); Glucose, Blood 123.0 mg/dL (70-99); Potassium, Blood 3.7 mmol/L (3.5-5.5); Sodium, Blood 139.0 mmol/L (136-145)
[2025-06-21 07:28] VITALS: BP 150/81
[2025-06-21] MEDS ORDERED: Cholecalciferol 1000 Unit Tablet (=25MCG) PO SCH (09:00)
[2025-06-21] MEDS ORDERED: Multivitamins 1 Tab PO SCH (09:00)
[2025-06-21] MEDS ORDERED: DULoxetine HCL 60 MG Capsule DR PO SCH (09:00)
[2025-06-21 11:09] VITALS: BP 121/68
[2025-06-21 15:11] VITALS: BP 145/73
--- NOTE | 2025-06-21 17:56 | NUR ---
SHIFT SUMMARY: PATIENT HAS REMAINED A+O X4 AND IS ABLE TO MAKE HIS NEEDS KNOWN. MR. STEPHENS HAS HAD SEVERAL COMPLAINTS OF PAIN IN HIS L SHOULDER AND BACK THIS SHIFT. THIS GENTLEMAN WAS MEDICATED WITH NORCO Q4 PRN FOR THIS PAIN. SEE EMAR FOR DETAILS. PHYSICAL THERAPY EVALED THIS PATIENT THIS SHIFT AND HAS SUGGESTED GOING BACK HOME TO LIVING SITUATION c OUTPATIENT THERAPY. OCCUPATIONAL THERAPY TO EVAL PATIENT IN THE MORNING OF 06/22/25. NO OTHER CHANGES NOTED DURING THIS SHIFT. MR. STEPHENS REMAINS ON TELE RUNNING NSR c 1ST DEGREE 80'S. PT HAS REQUESTED THIS PATIENTS SPOUSE TO BRING ARM SLING AND BOOT FOR FOOT. PLAN OF CARE ONGOING AT THIS TIME, WILL REPORT TO ONCOMING NURSE.
[2025-06-22] VITALS (8 sets, daily range): BP systolic 132–163; BP diastolic 68–97
--- NOTE | 2025-06-22 04:50 | NUR ---
THERAPY SITE COORDINATOR SUMMARY VSS. ALERT AND ORIENTED. COOPERATIVE WITH CARE. DX GI BLEED. NO NOTED BLOODY EMESIS OR DISCHARGE THIS SHIFT. MED TELE SR IN THE 70'S. NO NOTED NAUSEA, REMAINS ON CLEAR LIQUID DIET. HAS BEEN RESTING QUIETLY WITH FEW INTERRUPTIONS NOTED. CALL LIGHT IN REACH, RAILS UP X 2 AND BED IN LOW POSITIN FOR SAFETY. WILL CONTINUE TO MONITOR.
[2025-06-22 05:27] LABS: BASOPHILS ABSOLUTE AUTO 0.04 K/mm3 (0.00-0.23); BASOPHILS PERCENT AUTO 1 % (0-2); EOSINOPHILS ABSOLUTE AUTO 0.20 K/mm3 (0.00-0.68); EOSINOPHILS PERCENT AUTO 4 % (0-6); Hematocrit 28.0 % (37.0-53.0); Hemoglobin 9.0 g/dL (13.5-17.5); IMMATURE GRAN ABSOLUTE AUTO 0.01 K/mm3 (0.00-0.10); IMMATURE GRAN PERCENT AUTO 0 % (0-1); LYMPHOCYTES ABSOLUTE AUTO 0.96 K/mm3 (0.84-5.20); LYMPHOCYTES PERCENT AUTO 19 % (21-46); MONOCYTES ABSOLUTE AUTO 0.46 K/mm3 (0.16-1.47); MONOCYTES PERCENT AUTO 9 % (4-13); Mean Corpuscular HGB Conc 32.1 g/dL (31.5-36.5); Mean Corpuscular Volume 89 fL (80-100); NEUTROPHILS ABSOLUTE AUTO 3.30 K/mm3 (1.96-9.15); NEUTROPHILS PERCENT AUTO 66 % (41-73); NRBC ABSOLUTE 0.00 K/mm3 (0.00-0.02); NRBC Auto 0.0 /100 WBC (0.0-0.2); Platelet Count 211 K/mm3 (150-400); RDW Coefficient Variation 13.7 % (11.7-14.2); RDW Standard Deviation 45.1 fL (35.1-46.3)
[2025-06-22 07:06] LABS: Anion Gap 11.0 mmol/L (3-11); Blood Urea Nitrogen 10.0 mg/dL (8-24); CO2, Blood 23.0 mmol/L (21-32); Calcium, Blood 8.7 mg/dL (8.5-10.1); Chloride, Blood 109.0 mmol/L (98-108); Creatinine, Blood 0.77 mg/dL (0.60-1.20); Glucose, Blood 128.0 mg/dL (70-99); Potassium, Blood 3.8 mmol/L (3.5-5.5); Sodium, Blood 139.0 mmol/L (136-145)
--- NOTE | 2025-06-22 11:21 | NUR ---
DIZZY PT C/O OF DIZZINESS SITTING ON THE SIDE OF THE BED WORKING WITH O/T. NIO EVENTS ON MONITOR. ORTHO STATIC NEGATIVE. PT STATED THE ROOM WAS SPINNING. DR GEIGER. NO ORDERS AT THIS TIME.
[2025-06-22 12:42] LABS: Hematocrit 27.6 % (37.0-53.0); Hemoglobin 8.9 g/dL (13.5-17.5)
--- NOTE | 2025-06-22 17:30 | NUR ---
NOTE PT ALERT, RESTING IN BED. NO COMPLAINTS. REQUESTED CARE MANAGEMENT TO SEE ABOUT ORDERING PT A JERMAINE WALKER FOR HOME. PT EXPRESSED THAT HE FELT MUCH MORE STABLE WITH IT. VSS. TOLERATED A SHOWER WITH MINIMAL ASSIST. DID HAVE A DIZZY SPELL IN THE HALLWAY WITH P/T. MEDCAITED X2 FOR SHOULDER PAIN. PT HAS ALSO USED ICE THERAPY TO HIS SHOULDER WELL. H/L. RA. BED LOW LOCKED, CALL LIGHT WITH IN REACH.
[2025-06-23 00:07] VITALS: BP 133/74
[2025-06-23 04:18] VITALS: BP 128/75
--- NOTE | 2025-06-23 04:50 | NUR ---
INFORMATION TECHN[employer]Y INTERNS[employer] SUMMARY VSS. A/O X 4. COOPERATIVE WITH CARE. ADMIT DX GI BLEED, NO NOTED/REPORTED BLOODY EMESIS OR STOOL. UP WITH OBSERVATION. HAS BEEN RESTING QUIETLY WITH FEW INTERRUPTIONS. CALL LIGHT IN REACH, RAILS UP X 2 AND BED IN LOW POSITION FOR SAFETY. WILL CONTINUE TO MONITOR
[2025-06-23 05:46] LABS: BASOPHILS ABSOLUTE AUTO 0.03 K/mm3 (0.00-0.23); BASOPHILS PERCENT AUTO 1 % (0-2); EOSINOPHILS ABSOLUTE AUTO 0.24 K/mm3 (0.00-0.68); EOSINOPHILS PERCENT AUTO 5 % (0-6); Hematocrit 28.0 % (37.0-53.0); Hemoglobin 8.9 g/dL (13.5-17.5); IMMATURE GRAN ABSOLUTE AUTO 0.01 K/mm3 (0.00-0.10); IMMATURE GRAN PERCENT AUTO 0 % (0-1); LYMPHOCYTES ABSOLUTE AUTO 1.12 K/mm3 (0.84-5.20); LYMPHOCYTES PERCENT AUTO 23 % (21-46); MONOCYTES ABSOLUTE AUTO 0.47 K/mm3 (0.16-1.47); MONOCYTES PERCENT AUTO 10 % (4-13); Mean Corpuscular HGB Conc 31.8 g/dL (31.5-36.5); Mean Corpuscular Volume 89 fL (80-100); NEUTROPHILS ABSOLUTE AUTO 2.93 K/mm3 (1.96-9.15); NEUTROPHILS PERCENT AUTO 61 % (41-73); NRBC ABSOLUTE 0.00 K/mm3 (0.00-0.02); NRBC Auto 0.0 /100 WBC (0.0-0.2); Platelet Count 229 K/mm3 (150-400); RDW Coefficient Variation 13.5 % (11.7-14.2); RDW Standard Deviation 43.8 fL (35.1-46.3)
[2025-06-23 06:07] LABS: Anion Gap 10.0 mmol/L (3-11); Blood Urea Nitrogen 10.0 mg/dL (8-24); CO2, Blood 24.0 mmol/L (21-32); Calcium, Blood 8.6 mg/dL (8.5-10.1); Chloride, Blood 109.0 mmol/L (98-108); Creatinine, Blood 0.8 mg/dL (0.60-1.20); Glucose, Blood 112.0 mg/dL (70-99); Potassium, Blood 3.6 mmol/L (3.5-5.5); Sodium, Blood 139.0 mmol/L (136-145)
[2025-06-23 07:57] VITALS: BP 128/74
[2025-06-23] MEDS ORDERED: Polyethylene Glycol 3350 17 gm PO PRN (08:00)
[2025-06-23] MEDS ORDERED: Polyethylene Glycol 3350 17 gm PO ONE (08:00)
--- NOTE | 2025-06-23 11:09 | NUR ---
Upon receiving a referral for spiritual care, I visited the patient. He tells me about his many injuries and his medical history. He then shares about his [employer] bet[employer], the of his brother and beauty of going through challenging medical issues with the support of his spouse. He is tearful at times but is easily encouraged by scripture quotes and God centered conversation. I provided therapeutic listening, theological insights and prayer. The patient responded well and showed signs of being strengthened in his bethel.
[2025-06-23] MEDS ORDERED: ASPI81CH PO (12:01)
[2025-06-23] MEDS ORDERED: PANT40 PO (12:02)
[2025-06-23] MEDS ORDERED: MIRALAX17 GM PO (12:05)
--- NOTE | 2025-06-23 13:00 | NUR ---
SHIFT SUMMARY AND DISCHARGE PATIENT ALERT AND INTERACTIVE. PATIENT ABLE TO AMBULATE AROUND ROOM WITH HEMIWALKER. PATIENT HAD A BM DARK IN COLOR BUT BROWN AND NO BLOOD IN TOILET. PATIENT EDUCATED ON WHAT TO WATCH FOR RELATED TO GI BLEED. DISCHARGE INSTRUCTIONS REVIEWED WITH PATIENT. PATIENT DISCHARGED HOME. IV DC'D PRIOR TO DISCHARGE.
== END 2025-06-23 13:30 | disposition home or self-care (01) | DRG 378 ==
LOC: ER 12:19 → MEDS 12:20
PROVIDERS: Emergency Medicine; Internal Medicine Gastroenterology; Student in an Organized Health Care Education/Training Program; ADMIT Family Medicine
PROC: 30233N1 Transfusion of Nonautologous Red Blood Cells into Peripheral Vein, Percutaneous Approach (ICD-10-PCS; 2025-06-19)
PROC: 0W3P8ZZ Control Bleeding in Gastrointestinal Tract, Via Natural or Artificial Opening Endoscopic (ICD-10-PCS; principal; 2025-06-20 12:30)
DX: K31.811 Angiodysplasia of stomach and duodenum with bleeding (principal); D62 Acute posthemorrhagic anemia; E87.21 Acute metabolic acidosis; I25.10 Atherosclerotic heart disease of native coronary artery without angina pectoris; I10 Essential (primary) hypertension; I08.0 Rheumatic disorders of both mitral and aortic valves; E78.5 Hyperlipidemia, unspecified; J44.9 Chronic obstructive pulmonary disease, unspecified; M16.12 Unilateral primary osteoarthritis, left hip; F32.A Depression, unspecified; R50.9 Fever, unspecified; N40.1 Benign prostatic hyperplasia with lower urinary tract symptoms; R39.12 Poor urinary stream; G47.00 Insomnia, unspecified; M25.512 Pain in left shoulder; K59.00 Constipation, unspecified; Z79.02 Long term (current) use of antithrombotics/antiplatelets; I25.2 Old myocardial infarction; Z95.5 Presence of coronary angioplasty implant and graft; Z79.82 Long term (current) use of aspirin; Z87.891 Personal history of nicotine dependence; Z88.8 Allergy status to other drugs, medicaments and biological substances; Z79.899 Other long term (current) drug therapy
CPT/HCPCS: 36415; 36430; 71045; 74177; 80048; 80053; 83605; 85014; 85018; 85025; 85610; 85730; 86850; 86900; 86901; 86923; 87040; 87637; 93005; 93010; 94640; 94664; 94760; 96374-59; 96375; 96376; 97116; 97161; 97165; 97530; 97535; 99285-25; A9270; G0378; J0696; J1171; J2405; J2470; J2704; J3010; J7030; J7120; P9016; Q9967

== ENCOUNTER 2025-07-17 09:37 | Emergency (ER) | payer OTHER ==
[~2025-07-17] VITALS: Ht 182.9 cm; Wt 74.8 kg
[~2025-07-17 09:37] MED LIST changes: +ASPI81CH PO; +MIRALAX17 GM PO; +PANT40 PO
[2025-07-17] MEDS ORDERED: Pantoprazole Sodium 40 MG Injection IV ONE (09:45)
[2025-07-17] MEDS ORDERED: NS 1,000 ML IV SCH (09:50)
[2025-07-17] MEDS ORDERED: Ondansetron HCl 2 MG / ML 2ML Vial ONE (09:58)
[2025-07-17] MEDS ORDERED: FentaNYL Citrate 50 MCG/ML 2 ML Injection IV ONE (10:00)
[2025-07-17] MEDS ORDERED: Ondansetron HCl 2 MG / ML 2ML Vial IV ONE (10:00)
[2025-07-17] MEDS ORDERED: Prochlorperazine Edisylate 10 mg Vial IV PRN (10:00)
[2025-07-17 10:04] LABS: Calcium, Ionized (POC) 1.13 mmol/L (1.10-1.46); Chloride (POC) 111 mmol/L (98-108); Creatinine (POC) 0.8 mg/dL (0.8-1.3); Glucose (ISTAT POC) 203 mg/dL (70-99); Hematocrit (POC) 27.0 % (41.0-53.0); Hemoglobin (POC) 9.2 g/dL (13.5-17.5); Potassium (POC) 4.7 mmol/L (3.5-5.5); Sodium (POC) 142 mmol/L (135-148); Total CO2 (POC) 16 mmol/L (21-32)
[2025-07-17 10:29] LABS: BASOPHILS ABSOLUTE AUTO 0.05 K/mm3 (0.00-0.23); BASOPHILS PERCENT AUTO 0 % (0-2); EOSINOPHILS ABSOLUTE AUTO 0.11 K/mm3 (0.00-0.68); EOSINOPHILS PERCENT AUTO 1 % (0-6); Hematocrit 28.5 % (37.0-53.0); Hemoglobin 8.6 g/dL (13.5-17.5); IMMATURE GRAN ABSOLUTE AUTO 0.06 K/mm3 (0.00-0.10); IMMATURE GRAN PERCENT AUTO 1 % (0-1); LYMPHOCYTES ABSOLUTE AUTO 2.74 K/mm3 (0.84-5.20); LYMPHOCYTES PERCENT AUTO 24 % (21-46); MONOCYTES ABSOLUTE AUTO 0.75 K/mm3 (0.16-1.47); MONOCYTES PERCENT AUTO 7 % (4-13); Mean Corpuscular HGB Conc 30.2 g/dL (31.5-36.5); Mean Corpuscular Volume 87 fL (80-100); NEUTROPHILS ABSOLUTE AUTO 7.91 K/mm3 (1.96-9.15); NEUTROPHILS PERCENT AUTO 68 % (41-73); NRBC ABSOLUTE 0.00 K/mm3 (0.00-0.02); NRBC Auto 0.0 /100 WBC (0.0-0.2); Platelet Count 264 K/mm3 (150-400); RDW Coefficient Variation 16.4 % (11.7-14.2); RDW Standard Deviation 49.4 fL (35.1-46.3)
[2025-07-17 10:47] LABS: Alanine Aminotransfer (ALT/SGP 29.0 U/L (12-78); Albumin, Blood 3.5 g/dL (3.4-5.0); Albumin/Globulin Ratio 1.2 (0.8-1.8); Anion Gap 18.0 mmol/L (3-11); Aspartate Aminotrans (AST/SGOT 24.0 U/L (12-37); Bilirubin, Total 0.3 mg/dL (0.1-1.0); Blood Urea Nitrogen 37.0 mg/dL (8-24); CO2, Blood 15.0 mmol/L (21-32); Calcium, Blood 9.2 mg/dL (8.5-10.1); Chloride, Blood 112.0 mmol/L (98-108); Creatinine, Blood 0.67 mg/dL (0.60-1.20); Globulin, Blood 3.0 g/dL (2.2-4.0); Glucose, Blood 196.0 mg/dL (70-99); Potassium, Blood 4.7 mmol/L (3.5-5.5); Sodium, Blood 140.0 mmol/L (136-145); Total Protein, Blood 6.5 g/dL (6.4-8.2)
[2025-07-17 16:29] LABS: Hematocrit 22.9 % (37.0-53.0); Hemoglobin 7.1 g/dL (13.5-17.5)
[2025-07-17 17:15] VITALS: BP 149/85
== END 2025-07-17 17:25 | disposition short-term general hospital (02) ==
LOC: ER 09:37
PROVIDERS: Emergency Medicine
DX: K92.2 Gastrointestinal hemorrhage, unspecified (principal); D50.0 Iron deficiency anemia secondary to blood loss (chronic); R11.2 Nausea with vomiting, unspecified; R00.0 Tachycardia, unspecified; J44.9 Chronic obstructive pulmonary disease, unspecified; E78.5 Hyperlipidemia, unspecified; I25.10 Atherosclerotic heart disease of native coronary artery without angina pectoris; Z95.5 Presence of coronary angioplasty implant and graft; Z88.8 Allergy status to other drugs, medicaments and biological substances; Z79.899 Other long term (current) drug therapy; Z79.82 Long term (current) use of aspirin
CPT/HCPCS: 80047; 80053; 83690; 84484; 85014; 85018; 85025; 86850; 86900; 86901; 93005; 93010; 96361; 96374; 96375; 99285-25; A9270; J2405; J2470; J3010; J7030